=== PATIENT | female | born 1990 | race Caucasian/White ===

== ENCOUNTER 2017-08-01 21:43 | Observation (INO) | payer OTHER ==
[2017-08-01] MEDS ORDERED: NORMAL SALINE 1000 ML 1,000 ML IV ONE (22:24)
[2017-08-01] MEDS ORDERED: ONDANSETRON HCL INJ/PF 4 MG/2 ML SDV IV ONE (22:24)
[2017-08-01 22:36] LABS: ALANINE AMINOTRANSFERASE 24 U/L (9-52); ALBUMIN 4.6 g/dL (3.5-5.0); ALKALINE PHOSPHATASE 108 U/L (38-126); ANION GAP 13 (5-19); ASPARTATE AMINO TRANSFERASE 16 U/L (14-36); BILIRUBIN,DIRECT 0.3 mg/dL (0.0-0.4); BILIRUBIN,TOTAL 0.9 mg/dL (0.2-1.3); BLOOD UREA NITROGEN 8 mg/dL (7-20); CALCIUM 10.4 mg/dL (8.4-10.2); CARBON DIOXIDE 25 mmol/L (22-30); CHLORIDE 103 mmol/L (98-107); CREATININE RESULT 0.83 mg/dL (0.52-1.25); GLUCOSE 89 mg/dL (75-110); LIPASE 116.5 U/L (23-300); POTASSIUM 3.9 mmol/L (3.6-5.0); SODIUM 141.2 mmol/L (137-145); TOTAL PROTEIN 7.8 g/dL (6.3-8.2)
[2017-08-01 22:44] LABS: ABSOLUTE LYMPHOCYTES (AUTO) 2.8 10^3/uL (0.5-4.7); ABSOLUTE MONOCYTES (AUTO) 0.9 10^3/uL (0.1-1.4); ABSOLUTE NEUT (AUTO) 10.8 10^3/uL (1.7-8.2); BASOPHILS % (AUTO) 0.3 % (0-2); EOSINOPHILS % (AUTO) 0.1 % (0-6); HEMATOCRIT 42.6 % (36.0-47.0); HEMOGLOBIN 15.2 g/dL (12.0-15.5); LYMPHOCYTES % (AUTO) 19.4 % (13-45); MEAN CORPUSCULAR HEMOGLOBIN 30.4 pg (27.0-33.4); MEAN CORPUSCULAR HGB CONC 35.7 g/dL (32.0-36.0); MEAN CORPUSCULAR VOLUME 85 fl (80-97); MONOCYTES % (AUTO) 6.3 % (3-13); RED BLOOD COUNT 5.01 10^6/uL (3.72-5.28); RED CELL DISTRIBUTION WIDTH 13.3 % (11.5-14.0); SEGMENTED NEUTROPHILS % (AUTO) 73.9 % (42-78); WHITE BLOOD COUNT 14.6 10^3/uL (4.0-10.5)
[2017-08-01] MEDS ORDERED: MORPHINE SULFATE 10 MG/ML INJ IV PRN (23:09)
--- NOTE | 2017-08-01 23:09 | ER Document Report ---
ED General - General Chief Complaint: Abdominal Pain Stated Complaint: ABDOMINAL PAIN Time Seen by Provider: 08/01/17 22:10 Notes: Patient is a 27-year-old female with a past medical history of Graves' disease who presents with 12 hours of progressively worsening right lower quadrant abdominal pain with associated fever and vomiting. Patient states that she woke up this morning with a dull, mild 8 to the right lower quadrant. States that it progressively has worsened throughout the day today to the point where it is now a severe, constant, throbbing pain to the right lower quadrant. She has had 2 episodes of nonbilious vomiting at home since onset of the pain. She did not record her temperature but states that she was diaphoretic and "I absolutely had a fever". Denies a history of similar symptoms in the past. She has not tried anything for improvement of the pain. She states that walking down the stairs as well as the car ride here to the emergency room were excruciatingly painful and any kind of movement seems to worsen the pain. She denies any vaginal bleeding or discharge. No dysuria. TRAVEL OUTSIDE OF THE [place] IN LAST 30 DAYS: No - Related Data Allergies/Adverse Reactions: No Known Allergies Allergy (Verified 08/01/17 21:45) Home Medications: Current Home Medications Fluticasone Propionate [Flonase Nasal Lane 50 Mcg/Lane 16 gm] 1 spray NASL Q12 08/02/17 [History] Methimazole 10 mg PO DAILY 08/02/17 [History] Spironolactone [Aldactone 100 mg Tablet] 1 tab PO Q12 08/02/17 [History] Past Medical History - General Information source: Patient - Social History Smoking Status: Never Smoker Frequency of alcohol use: None Drug Abuse: None Lives with: Spouse/Significant other Family History: Reviewed & Not Pertinent Patient has suicidal ideation: No Patient has homicidal ideation: No Renal/ Medical History: Denies: Hx Peritoneal Dialysis - Immunizations Immunizations up to date: Yes Hx Diphtheria, Pertussis, Tetanus Vaccination: Yes Review of Systems - Review of Systems Notes: Constitutional: Negative for fever. HENT: Negative for sore throat. Eyes: Negative for visual changes. Cardiovascular: Negative for chest pain. Respiratory: Negative for shortness of breath. Gastrointestinal: Positive for abdominal pain and vomiting Genitourinary: Negative for dysuria. Musculoskeletal: Negative for back pain. Skin: Negative for rash. Neurological: Negative for headaches, weakness or numbness. 10 point ROS negative except as marked above and in HPI. Physical Exam - Vital signs Vitals: Temp Pulse Resp BP Pulse Ox 98.4 F 109 H 18 121/108 H 100 08/01/17 21:46 08/01/17 21:46 08/01/17 21:46 08/01/17 21:46 08/01/17 21:46 Interpretation: Tachycardic Notes: PHYSICAL EXAMINATION: GENERAL: Appears to be uncomfortable and in pain but in no acute distress HEAD: Atraumatic, normocephalic. EYES: Pupils equal round and reactive to light, extraocular movements intact, sclera anicteric, conjunctiva are normal. ENT: nares patent, oropharynx clear without exudates. Moderately dry mucous membranes. NECK: Normal range of motion, supple without lymphadenopathy LUNGS: Breath sounds clear to auscultation bilaterally and equal. No wheezes rales or rhonchi. HEART: Regular rate and rhythm without murmurs ABDOMEN: Soft, focal tenderness to the right lower quadrant with associated rebound and voluntary guarding. There is pain in the right lower quadrant when pressing the left lower quadrant. EXTREMITIES: Normal range of motion, no pitting or edema. No cyanosis. NEUROLOGICAL: No focal neurological deficits. Moves all extremities spontaneously and on command. PSYCH: Normal mood, normal affect. SKIN: Warm, Dry, normal turgor, no rashes or lesions noted. Course - Re-evaluation Re-evalutation: 08/01/17 23:01 Patient presents with focal right lower quadrant tenderness, fever at home, vomiting, and a clinical history very worrisome for an acute appendicitis. Laboratories do reveal an acute leukocytosis. I have a low clinical suspicion for related pathology based on her exam and history. She has no vaginal bleeding or discharge. No adnexal tenderness. Will proceed with CT abdomen pelvis to further clarify. 08/02/17 00:23 CT does show findings consistent with an acute appendicitis. I have discussed with who will assess. - Vital Signs Vital signs: Temp Pulse Resp BP Pulse Ox 98.5 F 94 16 125/77 100 08/02/17 03:36 08/02/17 03:36 08/02/17 03:36 08/02/17 03:36 08/02/17 03:36 - Laboratory Result Diagrams: 08/01/17 22:07 08/01/17 22:07 Laboratory results interpreted by me: 08/01/17 08/01/17 22:07 22:07 WBC 14.6 H Absolute Neutrophils 10.8 H Calcium 10.4 H Discharge - Discharge Clinical Impression: Acute appendicitis Qualifiers: Acute appendicitis type: with localized peritonitis Qualified Code(s): K35.3 - Acute appendicitis with localized peritonitis Condition: Fair Disposition: ADMITTED OBSERVATION Admitting Provider: Surgicalist - [facility] Unit Admitted: Surgical Floor
--- NOTE | 2017-08-02 00:17 | RADIOLOGY REPORT (SQ) ---
EXAM DESCRIPTION: CT ABD/PELVIS WITH IV ONLY COMPLETED DATE/TIME: 08/02/2017 12:04 am REASON FOR STUDY: rlq pain, appy COMPARISON: None. TECHNIQUE: CT scan of the abdomen and pelvis performed using helical scanning technique with dynamic intravenous contrast injection. No oral contrast. Images reviewed with lung, soft tissue, and bone windows. Reconstructed coronal and sagittal MPR images reviewed. Delayed images for evaluation of the urinary system also acquired. All images stored on PACS. All CT scanners at this facility use dose modulation, iterative reconstruction, and/or weight based d osing when appropriate to reduce radiation dose to as low as reasonably achievable (ALARA). [facility]: Dose Right [facility]: CareDose [facility]: Dose Right [facility]: Teradose 4D [facility]: Viptable CONTRAST TYPE AND DOSE: contrast/concentration: Isovue 370.00 mg/ml; Total Contrast Delivered: 99.0 ml; Total Saline Delivered: 69.0 ml RENAL FUNCTION: BUN 8 creatinine 0.83. RADIATION DOSE: Up-to-date CT equipment and radiation dose reduction techniques were employed. CTDIv ol: 17.5 - 19.8 mGy. DLP: 2052 mGy-cm.. LIMITATIONS: None. FINDINGS: LOWER CHEST: No significant findings. No nodules or infiltrates. LIVER: Normal size. No masses. No dilated ducts. SPLEEN: Normal size. No focal lesions. PANCREAS: No masses. No significant calcifications. No adjacent inflammation or peripancreatic fluid collections. Pancreatic duct not dilated. GALLBLADDER: No identified stones by CT criteria. No inflammatory changes to suggest cholecystitis. ADRENAL GLANDS: No significant masses or asymmetry. RIGHT KIDNEY AND URETER: No solid masses. No significant calcifications. No hydronephrosis or hyd roureter. LEFT KIDNEY AND URETER: No solid masses. No significant calcifications. No hydronephrosis or hydr oureter. AORTA AND VESSELS: No aneurysm. No dissection. Renal arteries, SMA, celiac without stenosis. RETROPERITONEUM: No retroperitoneal adenopathy, hemorrhage or masses. BOWEL AND PERITONEAL CAVITY: No masses or inflammatory changes. No free fluid or peritoneal masses. APPENDIX: Calcified phlebolith at the base of the appendix. Distended appendix with thickening of th e wall an mild periappendiceal inflammation. No fluid collections or extraluminal gas. PELVIS: No mass. Right ovarian cyst. IUD in the uterus. No free fluid. Normal bladder. ABDOMINAL WALL: No masses. No hernias. BONES: No significant or acute findings. OTHER: No other significant finding. IMPRESSION: 1. FINDINGS OF EARLY ACUTE APPENDICITIS. NO EVIDENCE OF PERFORATION OR ABSCESS. 2. SMALL RIGHT OVARIAN CYST. NO OTHER SIGNIFICANT OR ACUTE FINDING IN THE ABDOMEN OR PELVIS ON CT SC AN WITH IV CONTRAST. TECHNICAL DOCUMENTATION: JOB ID: [id number] Quality ID # [id number]: Final reports with documentation of one or more dose reduction techniques (e.g., Au tomated exposure control, adjustment of the mA and/or kV according to patient size, use of iterative reconstruction technique) 2010 [employer]- All Rights Reserved
[2017-08-02] MEDS ORDERED: PIPERACILLIN/TAZOBACTAM 3.375 GM VIAL IV ONE (00:23)
[2017-08-02 02:02] LABS: APPEARANCE,URINE SLIGHTLY-CLOUDY; BILIRUBIN,URINE NEGATIVE (NEGATIVE); GLUCOSE, URINE NEGATIVE (NEGATIVE); KETONES,URINE NEGATIVE (NEGATIVE); LEUKOCYTE ESTERASE,URINE NEGATIVE (NEGATIVE); NITRITE,URINE NEGATIVE (NEGATIVE); PROTEIN,URINE NEGATIVE (NEGATIVE); URINE SPECIFIC GRAVITY 1.032; UROBILINOGEN,URINE NEGATIVE mg/dL (<2.0)
[2017-08-02] MEDS: NORMAL SALINE 1000 ML 1,000 ML IV PRN ×2 (02:46→20:46)
--- NOTE | 2017-08-02 02:53 | HISTORY AND PHYSICAL E ---
History and Physical NAME: FRANSISCO RODRIGUEZ : 1990 AGE: 27Y ADMITTED: 08/02/2017 ROOM: ED08 CHIEF COMPLAINT: Abdominal pain. HISTORY OF PRESENT ILLNESS: This is a 27-year-old female who complains of pains around 9:00 in the morning of 08/01/17. Pains were generalized in the abdomen, associated with nausea. However, around 5:00 p.m., the pains localized in the right lower quadrant, and then went to the emergency room, where a CAT scan of the abdomen was performed which showed acute appendicitis. She felt feverish when she went to the emergency room. Her white count is elevated to 14,000. PAST HISTORY: History of hyperthyroidism, or Graves disease, diagnosed November 2016. She has been on methimazole 10 mg p.o. daily and spironolactone 100 mg daily. She had ear infections when she was younger, treated with inner-ear tubes. She had a sinus infection and seen by her primary physician 2 days ago and was given antiallergic medication and no antibiotics. She has been having some cough and sneezing. She also had a fever 2 days ago. ALLERGIES: ADHESIVE TAPE. No known drug allergies. SOCIAL HISTORY: Denies smoking, drinking, or recreational drug use. FAMILY HISTORY: Noncontributory. Both parents without diabetes mellitus. REVIEW OF SYSTEMS: Complaining of sinus congestion with cough and fever 2 days ago; taking antiallergic medication. Denies any visual or hearing problems. Denies any chest pains. GI: As in HPI. : No dysuria. No easy bruisability or gland enlargement. No history of seizures. Rest of the systems are negative. PHYSICAL EXAM: GENERAL: Well developed, slightly overweight, female, alert and oriented, complaining of abdominal pain. HEENT: Neck is supple. No thyromegaly. LUNGS: Clear. HEART: Regular sinus rhythm. ABDOMEN: Soft with tenderness in the right lower quadrant. Also with rebound tenderness. EXTREMITIES: No edema. IMPRESSION: Acute appendicitis. PLANS: 1. Start IV antibiotics. 2. Hydrate. 3. I will schedule a laparoscopic appendectomy this morning. 4. Continue her methimazole prior to surgery. DICTATING PHYSICIAN: RICARDO MENCHACA M.D. [id number] PHY#: [id number] ID: [id number] JOB#: [id number] ACCT: [id number] cc:Kelin SHAH MD
[2017-08-02] MEDS: ONDANSETRON HCL INJ/PF 4 MG/2 ML SDV IV PRN (07:21)
[2017-08-02 07:25] LABS: FREE T3 3.47 pg/mL (2.77-5.27)
[2017-08-02 07:38] LABS: THYROID STIMULATING HORMONE 0.02 uIU/mL (0.47-4.68)
[2017-08-02] MEDS ORDERED: METOCLOPRAMIDE HCL INJ/PF 10 MG/2 ML SDV ONE (07:48)
[2017-08-02] MEDS ORDERED: ROCURONIUM BROMIDE INJ 50 MG/5 ML VIAL IV ONE (07:48)
[2017-08-02] MEDS ORDERED: ONDANSETRON HCL INJ/PF 4 MG/2 ML SDV ONE (07:48)
[2017-08-02] MEDS ORDERED: DEXAMETHASONE SOD PHOSPHATE INJ 4 MG/1 ML VIAL ONE (07:48)
[2017-08-02] MEDS ORDERED: SUCCINYLCHOLINE CHLORIDE INJ 200 MG/10 ML VIAL ONE (07:48)
[2017-08-02] MEDS ORDERED: LIDOCAINE 2% INJ-PF (20 MG/ML) 10 ML AMPUL ONE (07:48)
[2017-08-02 08:06] LABS: ABSOLUTE LYMPHOCYTES (AUTO) 1.6 10^3/uL (0.5-4.7); ABSOLUTE NEUT (AUTO) 12.6 10^3/uL (1.7-8.2); BASOPHILS % (AUTO) 0.2 % (0-2); EOSINOPHILS % (AUTO) 0.1 % (0-6); HEMATOCRIT 37.6 % (36.0-47.0); HGB HCT DIFFERENCE 1.1; LYMPHOCYTES % (AUTO) 10.5 % (13-45); MEAN CORPUSCULAR HEMOGLOBIN 29.3 pg (27.0-33.4); MEAN CORPUSCULAR HGB CONC 34.3 g/dL (32.0-36.0); MEAN CORPUSCULAR VOLUME 86 fl (80-97); MONOCYTES % (AUTO) 6.8 % (3-13); RED BLOOD COUNT 4.39 10^6/uL (3.72-5.28); RED CELL DISTRIBUTION WIDTH 13.2 % (11.5-14.0); SEGMENTED NEUTROPHILS % (AUTO) 82.4 % (42-78); WHITE BLOOD COUNT 15.3 10^3/uL (4.0-10.5)
[2017-08-02 08:07] LABS: HEMOGLOBIN 12.9 g/dL (12.0-15.5)
[2017-08-02] MEDS ORDERED: IBUPROFEN INJ 800 MG/8 ML VIAL IV ONE (08:10)
[2017-08-02] MEDS ORDERED: MIDAZOLAM 2 MG/2 ML INJ ONE (08:10)
[2017-08-02] MEDS ORDERED: ACETAMINOPHEN 100 ML IV ONE (08:10)
[2017-08-02] MEDS ORDERED: PROPOFOL INJ 200 MG/20 ML VIAL IV ONE (08:10)
[2017-08-02] MEDS ORDERED: EPHEDRINE SULFATE INJ 50 MG/1 ML AMPULE ONE (08:10)
[2017-08-02] MEDS ORDERED: HYDROMORPHONE HCL INJ/PF 2 MG/ML AMPULE ONE (08:10)
[2017-08-02] MEDS ORDERED: BUPIVACAINE HCL 0.25 % INJ/PF (2.5 MG/1 ML) 30 ML VIAL ONE (08:20)
[2017-08-02] MEDS ORDERED: OXYCODONE-ACETAMINOPHEN 5-325 MG TABLET PO PRN ×2 (09:24)
[2017-08-02] MEDS ORDERED: MEPERIDINE HCL/PF INJ 25 MG/1 ML DISP.SYRIN IV PRN (09:24)
[2017-08-02] MEDS ORDERED: MORPHINE SULFATE 10 MG/ML INJ IV PRN (09:24)
[2017-08-02] MEDS ORDERED: PROMETHAZINE HCL INJ 25 MG/1 ML VIAL IV PRN ×2 (09:24)
[2017-08-02] MEDS ORDERED: FENTANYL CITRATE INJ/PF 100 MCG/2 ML AMPUL IV PRN ×3 (09:24)
[2017-08-02] MEDS ORDERED: ONDANSETRON HCL INJ/PF 4 MG/2 ML SDV IV PRN (09:24)
[2017-08-02] MEDS ORDERED: DIPHENHYDRAMINE HCL 50 MG/ML VIAL IV PRN (09:24)
[2017-08-02] MEDS ORDERED: MORPHINE SULFATE 10 MG/ML INJ ONE (11:11)
--- NOTE | 2017-08-02 12:18 | OPERATIVE REPORT E ---
Operative Report NAME: FRANSISCO RODRIGUEZ : 1990 AGE: 27Y DATE OF SURGERY: 08/02/2017 ROOM: 415 PREOPERATIVE DIAGNOSIS: ACUTE APPENDICITIS. POSTOPERATIVE DIAGNOSIS: ACUTE APPENDICITIS. OPERATION: Laparoscopic appendectomy SURGEON: RICARDO MENCHACA M.D. ANESTHESIA: General. INDICATION: This is a 27-year-old female complaining of abdominal pains last night. CAT scan of the abdomen revealed acute appendicitis. She is tender in the right lower quadrant with rebound. DESCRIPTION OF PROCEDURE: Patient was placed in the supine position and given general endotracheal anesthesia. The abdomen was then prepped and draped in the usual sterile fashion. Appropriate time-out was called. Next, an elliptical infraumbilical incision was made and the fascia identified and divided and a April trocar inserted into the abdominal cavity and CO2 insufflated to a pressure of 15 mmHg. Next, two other trocars were placed under direct vision; a 5-mm in the suprapubic area and a 12-mm in the left lower quadrant. Next, the appendix was identified but only the tip was able to be grasped. There was a log to adhesions with appendix adherent to the wall of the cecum. This was then divided; the mesoappendix with harmonic daniel. Unfortunately, there was some bleeding from the mesenteric appendiceal artery that was controlled with Hemoclips. This was done after considerable amount of bleeding. Next, the mesoappendix was further dissected down to the base where it comes out of the cecum. While dissecting and controlling the bleeding, there might be a small amount of appendiceal content, maybe a couple of drops was noted and this was then irrigated well. Next, the base of the appendix was then stapled with an endo GONZÁLEZ. The appendix was then placed in an Endobag and pulled out through the umbilical port. Next, further irrigation and inspection of the appendiceal stump was then performed. No evidence of active bleeding noted. A lot of the clots were then suctioned and aspirated with a big *------* aspirator. At least 5 L of saline was used to irrigate the abdominal cavity. Next, the omentum was laid over the area of the appendiceal stump. Next, a Reese-Carlos drain was then brought out through the suprapubic port and drain placed around the site of the cecum and ascending colon. It was then anchored to the skin with 3-0 silk. Next, the trocars were removed and CO2 allowed to come out of the trocar sites. The fascial defect of the infraumbilical area was closed with [id number] sutures using 0 Vicryl. Hemostasis was further obtained and cauterized along the deep subcutaneous fat of the dermis with cautery. Next, the skin incisions were then closed with running suture using 4-0 Vicryl undyed. Sterile dressings placed over the operative sites after placement of Steri-Strips. The patient tolerated the procedure well. Needle, instrument and sponge counts were all correct. Estimated blood loss about 50 mL. Patient then brought to the PACU in satisfactory condition. DICTATING PHYSICIAN: RICARDO MENCHACA M.D. [id number] PHY#: [id number] ID: [id number] JOB#: [id number] ACCT: [id number] cc:RICARDO MENCHACA M.D. >
[2017-08-02] MEDS ORDERED: PIPERACILLIN SODIUM/TAZOBACTAM 3.375 GM in DEXTROSE 5%-WATER 100 ML IV ONE (12:30)
[2017-08-02] MEDS: MORPHINE SULFATE 10 MG/ML INJ IV PRN ×2 (16:25→20:49)
[2017-08-02] MEDS: PIPERACILLIN SODIUM/TAZOBACTAM 3.375 GM in NORMAL SALINE 100 ML IV SCH ×2 (17:44→23:14)
[2017-08-02 18:05] LABS: HEMATOCRIT 37.2 % (36.0-47.0); HEMOGLOBIN 12.7 g/dL (12.0-15.5); HGB HCT DIFFERENCE 0.9; MEAN CORPUSCULAR HEMOGLOBIN 29.5 pg (27.0-33.4); MEAN CORPUSCULAR HGB CONC 34.1 g/dL (32.0-36.0); MEAN CORPUSCULAR VOLUME 87 fl (80-97); RED CELL DISTRIBUTION WIDTH 13.1 % (11.5-14.0); WHITE BLOOD COUNT 25.1 10^3/uL (4.0-10.5)
[2017-08-02 18:28] LABS: ANION GAP 11 (5-19); BLOOD UREA NITROGEN 7 mg/dL (7-20); CALCIUM 9.3 mg/dL (8.4-10.2); CARBON DIOXIDE 23 mmol/L (22-30); CHLORIDE 105 mmol/L (98-107); CREATININE RESULT 0.76 mg/dL (0.52-1.25); GLUCOSE 155 mg/dL (75-110); POTASSIUM 4.4 mmol/L (3.6-5.0); SODIUM 138.8 mmol/L (137-145)
[2017-08-02 18:30] LABS: BAND NEUTROPHILS % (MANUAL) 4 % (3-5); BASOPHILS % (MANUAL) 0 % (0-2); EOSINOPHILS % (MANUAL) 0 % (0-6); LYMPHOCYTES % (MANUAL) 2 % (13-45); TOTAL CELLS COUNTED 100
[2017-08-02 18:32] LABS: RBC MORPHOLOGY COMMENT NORMO-CYTIC/CHROMIC
[2017-08-03] MEDS: MORPHINE SULFATE 10 MG/ML INJ IV PRN (05:49)
[2017-08-03] MEDS: NORMAL SALINE 1000 ML 1,000 ML IV PRN (05:51)
[2017-08-03] MEDS: PIPERACILLIN SODIUM/TAZOBACTAM 3.375 GM in NORMAL SALINE 100 ML IV SCH ×3 (05:51→17:06)
[2017-08-03] MEDS ORDERED: NORMAL SALINE 1000 ML 1,000 ML IV PRN (06:37)
[2017-08-03 06:52] LABS: ABSOLUTE BASOPHILS # (AUTO) 0.1 10^3/uL (0.0-0.2); ABSOLUTE LYMPHOCYTES (AUTO) 1.5 10^3/uL (0.5-4.7); ABSOLUTE MONOCYTES (AUTO) 1.1 10^3/uL (0.1-1.4); ABSOLUTE NEUT (AUTO) 16.1 10^3/uL (1.7-8.2); BASOPHILS % (AUTO) 0.4 % (0-2); HEMATOCRIT 33.2 % (36.0-47.0); HEMOGLOBIN 11.5 g/dL (12.0-15.5); HGB HCT DIFFERENCE 1.3; LYMPHOCYTES % (AUTO) 8.1 % (13-45); MEAN CORPUSCULAR HEMOGLOBIN 29.5 pg (27.0-33.4); MEAN CORPUSCULAR HGB CONC 34.8 g/dL (32.0-36.0); MEAN CORPUSCULAR VOLUME 85 fl (80-97); MONOCYTES % (AUTO) 5.7 % (3-13); RED BLOOD COUNT 3.91 10^6/uL (3.72-5.28); RED CELL DISTRIBUTION WIDTH 13.4 % (11.5-14.0); SEGMENTED NEUTROPHILS % (AUTO) 85.8 % (42-78); WHITE BLOOD COUNT 18.8 10^3/uL (4.0-10.5)
[2017-08-03 07:26] LABS: FREE T3 2.61 pg/mL (2.77-5.27)
[2017-08-03 07:40] LABS: THYROID STIMULATING HORMONE 0.09 uIU/mL (0.47-4.68)
[2017-08-03] MEDS ORDERED: KETOROLAC TROMETHAMINE INJ/PF 30 MG/1 ML SDV IV PRN (09:39)
[2017-08-03] MEDS: KETOROLAC TROMETHAMINE 10 MG TABLET PO PRN ×2 (12:33→19:31)
--- NOTE | 2017-08-03 15:46 | PDOC PROGRESS REPORT ---
Subjective Progress Note for:: 08/03/17 Subjective:: Feels well, voided, tolerated clear liquids Physical Exam Vital Signs: Temp Pulse Resp BP Pulse Ox 99.0 F 108 H 19 126/79 H 95 08/03/17 11:08 08/03/17 11:08 08/03/17 11:08 08/03/17 11:08 08/03/17 11:08 Intake & Output 08/02/17 08/03/17 08/04/17 06:59 06:59 06:59 Intake Total 9584 Output Total 300 5800 Balance -300 3784 Weight 105.5 kg 109.1 kg General appearance: PRESENT: no acute distress GI/Abdominal exam: PRESENT: other - Operative incisions covered, no drainage. Abdomen appropriately tender. Results Laboratory Results: 08/03/17 06:43 08/02/17 17:57 08/02/17 08/02/17 08/03/17 17:57 17:57 06:43 WBC 25.1 H RBC 4.30 Hgb 12.7 Hct 37.2 MCV 87 MCH 29.5 MCHC 34.1 RDW 13.1 Plt Count 309 Seg Neutrophils % Not Reportable Lymphocytes % Not Reportable Monocytes % Not Reportable Eosinophils % Not Reportable Basophils % Not Reportable Absolute Neutrophils Not Reportable Absolute Lymphocytes Not Reportable Absolute Monocytes Not Reportable Absolute Eosinophils Not Reportable Absolute Basophils Not Reportable Sodium 138.8 Potassium 4.4 Chloride 105 Carbon Dioxide 23 Anion Gap 11 BUN 7 Creatinine 0.76 Est GFR ( Amer) > 60 Est GFR (Non-Af Amer) > 60 Glucose 155 H Calcium 9.3 TSH 0.09 L Free T4 1.07 Free T3 pg/mL 2.61 L 08/03/17 06:43 WBC 18.8 H RBC 3.91 Hgb 11.5 L Hct 33.2 L MCV 85 MCH 29.5 MCHC 34.8 RDW 13.4 Plt Count 270 Seg Neutrophils % 85.8 H Lymphocytes % 8.1 L Monocytes % 5.7 Eosinophils % 0.0 Basophils % 0.4 Absolute Neutrophils 16.1 H Absolute Lymphocytes 1.5 Absolute Monocytes 1.1 Absolute Eosinophils 0.0 Absolute Basophils 0.1 Sodium Potassium Chloride Carbon Dioxide Anion Gap BUN Creatinine Est GFR ( Amer) Est GFR (Non-Af Amer) Glucose Calcium TSH Free T4 Free T3 pg/mL Impressions: Abdomen/Pelvis CT 08/01/17 23:00 IMPRESSION: 1. FINDINGS OF EARLY ACUTE APPENDICITIS. NO EVIDENCE OF PERFORATION OR ABSCESS. 2. SMALL RIGHT OVARIAN CYST. NO OTHER SIGNIFICANT OR ACUTE FINDING IN THE ABDOMEN OR PELVIS ON CT SCAN WITH IV CONTRAST. Assessment & Plan - Diagnosis (1) Acute appendicitis Qualifiers: Acute appendicitis type: with localized peritonitis Qualified Code(s): K35.3 - Acute appendicitis with localized peritonitis Is this a current diagnosis for this admission?: Yes Plan: She is 1 day status post laparoscopic appendectomy for acute appendicitis. Recommendations 1. Patient doing well. We will switch her to p.o. pain medication 2. We will advance diet as tolerated; continue intravenous antibiotics 3. Anticipate discharge home tomorrow.
[2017-08-04] MEDS: PIPERACILLIN SODIUM/TAZOBACTAM 3.375 GM in NORMAL SALINE 100 ML IV SCH ×4 (00:11→17:12)
[2017-08-04] MEDS: KETOROLAC TROMETHAMINE 10 MG TABLET PO PRN ×3 (01:05→17:12)
[2017-08-04] MEDS: ONDANSETRON HCL INJ/PF 4 MG/2 ML SDV IV PRN (01:49)
[2017-08-04 16:28] LABS: ABSOLUTE BASOPHILS # (AUTO) 0.1 10^3/uL (0.0-0.2); ABSOLUTE LYMPHOCYTES (AUTO) 1.5 10^3/uL (0.5-4.7); ABSOLUTE MONOCYTES (AUTO) 0.8 10^3/uL (0.1-1.4); ABSOLUTE NEUT (AUTO) 12.6 10^3/uL (1.7-8.2); BASOPHILS % (AUTO) 0.5 % (0-2); EOSINOPHILS % (AUTO) 0.2 % (0-6); HEMATOCRIT 35.6 % (36.0-47.0); HEMOGLOBIN 12.1 g/dL (12.0-15.5); HGB HCT DIFFERENCE 0.7; LYMPHOCYTES % (AUTO) 9.8 % (13-45); MEAN CORPUSCULAR HEMOGLOBIN 29.2 pg (27.0-33.4); MEAN CORPUSCULAR HGB CONC 34.1 g/dL (32.0-36.0); MEAN CORPUSCULAR VOLUME 86 fl (80-97); MONOCYTES % (AUTO) 5.3 % (3-13); RED BLOOD COUNT 4.15 10^6/uL (3.72-5.28); RED CELL DISTRIBUTION WIDTH 13.2 % (11.5-14.0); SEGMENTED NEUTROPHILS % (AUTO) 84.2 % (42-78)
[2017-08-04 17:48] VITALS: BP 115/71
--- NOTE | 2017-08-04 19:32 | DISCHARGE SUMMARY E ---
Discharge Summary NAME: FRANSISCO RODRIGUEZ : 1990 AGE: 27Y ADMITTED: 08/02/2017 DISCHARGED: 08/04/2017 FINAL DIAGNOSIS: Acute appendicitis. PROCEDURES PERFORMED: Laparoscopic appendectomy on 08/03/2017. HOSPITAL COURSE: The patient admitted on 08/02/2017 at night and had laparoscopic appendectomy on 08/03/2017 for acute appendicitis. The patient had difficult dissection of the appendix which was adherent to the cecum. There was some bleeding at the appendiceal artery which was eventually controlled with hemoclips. The appendix itself had a lot of thick adhesions that were dissected with Harmonic daniel. Part of the wall was inadvertently opened and may have extruded a couple of pieces of appendiceal content. This was then irrigated. The neck of the appendix was stapled nicely. The abdominal cavity was irrigated with several liters of saline. Postoperatively the patient's hemoglobin dropped from 15 to 12 and the white count yesterday was 18,000 and repeat today was 15,000. A drain was left in place and still draining considerable amounts today. The patient will be discharged with the drain intact and the patient and were instructed how to empty the drain, which will be removed in the Surgical Clinic in about 3 days. The patient able to tolerate soft diet on discharge and remained afebrile. He still gets some mild tenderness in the right lower quadrant area but no real significant tenderness. The patient able to move her bowels. The patient subsequently discharged improved on 08/04/2017. FINAL DIAGNOSIS: Acute appendicitis. PLAN: 1. The patient is to continue on p.o. Cipro 500 mg twice a day for the next 5 days. 2. Toradol 10 mg p.o. q.8 h. p.r.n. for pain. 3. A note was given to the patient to go back to work in about 3 weeks. 4. The patient also instructed to go to the Surgical Clinic Thursday or 3 days from now or early next week for primary to remove the drain and to make sure the recovery is coming along well. DICTATING PHYSICIAN: RICARDO MENCHACA M.D. [id number] PHY#: [id number] ID: [id number] JOB#: [id number] ACCT: [id number] cc:LOCAL, NO RICARDO ERICKSON M.D, M.D. [facility], E. R. >
== END 2017-08-04 19:16 | disposition home or self-care (01) ==
LOC: ER 21:43 → UNDOADMOB 08-02 00:47 → EH 08-02 00:47 → 4N 08-02 02:27
PROVIDERS: ATTEND Surgery
PROC: 0DNJ4ZZ Release Appendix, Percutaneous Endoscopic Approach (ICD-10-PCS; 2017-08-02)
PROC: 0DNH4ZZ Release Cecum, Percutaneous Endoscopic Approach (ICD-10-PCS; 2017-08-02)
PROC: 0DTJ4ZZ Resection of Appendix, Percutaneous Endoscopic Approach (ICD-10-PCS; principal; 2017-08-02 08:30)
DX: K35.3 Acute appendicitis with localized peritonitis (principal); K38.8 Other specified diseases of appendix; I97.42 Intraoperative hemorrhage and hematoma of a circulatory system organ or structure complicating other procedure; Y83.6 Removal of other organ (partial) (total) as the cause of abnormal reaction of the patient, or of later complication, without mention of misadventure at the time of the procedure; E05.00 Thyrotoxicosis with diffuse goiter without thyrotoxic crisis or storm
CPT/HCPCS: 99285; 96361; 96375; 96365; 36415 ×3; 84439 ×2; 83690; 84443 ×2; 84703; 85025 ×4; 80048; 80053; 81001; 84481 ×2; 88304 ×2; 74177; 44970; 44979; 44180; G0378 ×4; J2250; J3490 ×5; J1100; J2765; J2270 ×2; J1170; J0330; J2405 ×3; J7030 ×3; J2704; J2543 ×3; J0131; J1741; 840